=== PATIENT | female | born 1995 | race Two or more races ===

== ENCOUNTER 2019-01-12 00:27 | Emergency (ER) | payer BC ==
[~2019-01-12] VITALS: Ht 172.7 cm; Wt 54.9 kg
--- NOTE | 2019-01-12 00:35 | NUR ---
PT BRENDON C/O INTERMITTENT R SIDE ABDOMINAL PAIN. PT STATES SHE WAS SEEN BY MD AND RECENTLY DX WITH ULCER, HAS BEEN TAKING PROTONIX AND CARAFATE AT HOME, MINIMAL RELIEF. DENIES DYSURIA, VOMITTING, DIARRHEA. PT AAOX4. APPEARS UNCOMFORTABLE. VITAL SIGNS STABLE. ABLE TO AMBULATE WITH STEADY GAIT. SKIN INTACT. NO ACUTE DISTRESS NOTED AT THIS TIME. PLACED IN GOWN AND ON MONITOR, WILL CONTINUE TO MONITOR
[2019-01-12] MEDS ORDERED: MAG HYDROX/AL HYDROX/SIMETH 30 ML UDC ONE (00:38)
[2019-01-12] MEDS ORDERED: ONDANSETRON HCL/PF 4 MG/2 ML VIAL ONE (00:38)
[2019-01-12] MEDS ORDERED: LIDOCAINE VISCOUS 2% UD 15 ML UDC ONE (00:38)
--- NOTE | 2019-01-12 00:43 | NUR ---
IV INITIATED LAC 20G. LABS DRAWN FROM SITE. NATIONAL SALES ASSOCIATE AT BEDSIDE FOR COLLECTION. IV INTACT AND PATENT, PLACED ON SALINE LOCK
[2019-01-12] MEDS ORDERED: SUCRALFATE 1 G/10 ML UDC ONE ×2 (00:57→00:59)
[2019-01-12] MEDS ORDERED: PANTOPRAZOLE 40 MG VIAL ONE (00:57)
[2019-01-12] MEDS ORDERED: PANTOPRAZOLE 40 MG VIAL IV ONE (01:00)
[2019-01-12] MEDS ORDERED: SUCRALFATE 1 G/10 ML UDC PO ONE (01:00)
[2019-01-12] MEDS ORDERED: IV NS 0.9% 1,000 ML BAG IV ONE (01:00)
[2019-01-12] MEDS ORDERED: ONDANSETRON HCL/PF 4 MG/2 ML VIAL IVP ONE (01:00)
[2019-01-12] MEDS ORDERED: MAG HYDROX/AL HYDROX/SIMETH 30 ML UDC PO ONE (01:00)
--- NOTE | 2019-01-12 01:00 | NUR ---
CARAFATE SUP ACCIDENTALLY SPILLED, PULLED ADDITIONAL MEDICATION TO ADMINISTER
[2019-01-12 01:05] LABS: BASOPHILS # (AUTO) 0.1 /CMM (0.0-0.2); EOSINOPHILS % (AUTO) 1.3 % (0.0-6.0); HEMATOCRIT 43 % (33-45); HEMOGLOBIN 14.1 g/dL (11.5-14.8); LYMPHOCYTES # (AUTO) 2.4 /CMM (0.8-4.8); LYMPHOCYTES % (AUTO) 36.3 % (20.0-44.0); MEAN CORPUSCULAR HGB CONC 33 g/dl (31.0-36.0); MEAN CORPUSCULAR VOLUME 82 fL (82-100); MONOCYTES # (AUTO) 0.4 /CMM (0.1-1.30); MONOCYTES % (AUTO) 6.1 % (2.0-12.0); NEUTROPHILS # (AUTO) 3.6 /CMM (1.8-8.9); NEUTROPHILS % (AUTO) 55.3 % (43.0-81.0); PLATELET COUNT (AUTO) 230 /CMM (150-450); RED BLOOD CELL COUNT(AUTO) 5.21 MIL/uL (4.0-5.2); WHITE BLOOD COUNT (AUTO) 6.5 K/uL (4.3-11.0)
[2019-01-12 01:06] LABS: CALCIUM, SERUM 8.7 mg/dL (8.5-10.1); CREATININE 0.7 mg/dL (0.6-1.3); POTASSIUM 3.6 mmol/L (3.5-5.1)
[2019-01-12 01:12] LABS: ALBUMIN 4.4 g/dL (3.4-5.0); BILIRUBIN,DIRECT 0.1 mg/dL (0.0-0.2); BILIRUBIN,TOTAL 0.5 mg/dL (0.2-1.0); TOTAL PROTEIN, SERUM 7.4 g/dL (6.4-8.2)
--- NOTE | 2019-01-12 01:13 | NUR ---
RADIOLOGY AT BEDSIDE FOR CXR
--- NOTE | 2019-01-12 01:16 | NUR ---
US AT BEDSIDE
[2019-01-12] MEDS ORDERED: MORPHINE SULFATE INJ 2 MG/ML DISP.SYRIN ONE (01:49)
--- NOTE | 2019-01-12 01:50 | NUR ---
PT STILL C/O ABDOMINAL PAIN AND BURNING. ER AWARE
[2019-01-12] MEDS ORDERED: MORPHINE SULFATE INJ 2 MG/ML DISP.SYRIN IV ONE ×2 (02:00→03:00)
--- NOTE | 2019-01-12 02:34 | NUR ---
CERTIFICATION ENGINEER AT BEDSIDE FOR REDRAW
[2019-01-12] MEDS ORDERED: MORPHINE SULFATE INJ 4 MG/ML DISP.SYRIN ONE (03:01)
[2019-01-12 03:17] LABS: CALCIUM, SERUM 7.7 mg/dL (8.5-10.1); CREATININE 0.6 mg/dL (0.6-1.3); POTASSIUM 3.9 mmol/L (3.5-5.1)
--- NOTE | 2019-01-12 03:52 | NUR ---
Patient discharged to home in stable condition. Written and verbal after care instructions given. Patient verbalizes understanding of instruction.IV removed. Catheter intact and site benign. Pressure and 4x4 applied to site. No bleeding noted.Pt ambulatory with a steady gait
[2019-01-12 03:53] VITALS: BP 123/79
== END 2019-01-12 03:53 | disposition home or self-care (01) ==
LOC: ER 00:29
DX: R10.11 Right upper quadrant pain (principal); R11.2 Nausea with vomiting, unspecified
CPT/HCPCS: 36415; 71045; 76705; 80048 ×2; 80076; 83690; 84703; 85025; 96361; 96374; 96375; 96376; 99284; C9113; J2270 ×2; J2405; J7030

== ENCOUNTER 2019-08-08 08:04 | Inpatient (IN) | payer BC ==
[2019-08-04 15:48] LABS: APPEARANCE,URINE CLEAR (CLEAR); BASOPHILS # (AUTO) 0.1 /CMM (0.0-0.2); BASOPHILS % (AUTO) 2.4 % (0.0-2.0); BILIRUBIN,URINE NEGATIVE (NEGATIVE); BLOOD, URINE TRACE Ery/uL (NEGATIVE); COLOR,URINE YELLOW (YELLOW); HEMATOCRIT 44 % (33-45); HEMOGLOBIN 14.7 g/dL (11.5-14.8); KETONES,URINE NEGATIVE (NEGATIVE); LEUKOCYTE ESTERASE ,URINE NEGATIVE (NEGATIVE); LYMPHOCYTES # (AUTO) 1.3 /CMM (0.8-4.8); LYMPHOCYTES % (AUTO) 25.3 % (20.0-44.0); MEAN CORPUSCULAR HGB CONC 33 g/dl (31.0-36.0); MEAN CORPUSCULAR VOLUME 87 fL (82-100); MONOCYTES # (AUTO) 0.4 /CMM (0.1-1.30); MONOCYTES % (AUTO) 7.3 % (2.0-12.0); NEUTROPHILS # (AUTO) 3.4 /CMM (1.8-8.9); NITRITE, URINE NEGATIVE (NEGATIVE); PH,URINE 7.5 (5.0-8.0); PLATELET COUNT (AUTO) 222 /CMM (150-450); PROTEIN,URINE NEGATIVE (NEGATIVE); UGLUCOSE NEGATIVE (NEGATIVE); UROBILINOGEN,URINE 0.2 EU/dL (0.2); WHITE BLOOD COUNT (AUTO) 5.3 K/uL (4.3-11.0)
[2019-08-04 15:57] LABS: ALBUMIN 4.2 g/dL (3.4-5.0); BILIRUBIN,TOTAL 1.1 mg/dL (0.2-1.0); CALCIUM, SERUM 8.8 mg/dL (8.5-10.1); CREATININE 0.7 mg/dL (0.6-1.3); TOTAL PROTEIN, SERUM 7.1 g/dL (6.4-8.2)
[2019-08-04 16:00] LABS: BACTERIA,URINE 2+ /HPF (None Seen); WBC,URINE 0-2 /HPF (0-3)
[2019-08-04 16:50] LABS: BILIRUBIN,DIRECT 0.2 mg/dL (0.0-0.2); BILIRUBIN,TOTAL 1.1 mg/dL (0.2-1.0)
[~2019-08-08] VITALS: Ht 167.6 cm; Wt 56.7 kg
[~2019-08-08 08:04] MED LIST: ANESTHESIA TRAY IN PYXIS 1 EA TRAY MC ONE; BUPIVACAINE MPF W/EPI 0.25% 30 ML VIAL ONE; LIDOCAINE HCL/MPF 1% 30 ML VIAL IJ ONE
[2019-08-08] MEDS ORDERED: SCOPOLAMINE HBR 1 EA PATCH.TD72 TD ONE (08:44)
[2019-08-08] MEDS ORDERED: MIDAZOLAM HCL 2 MG/2ML VIAL ONE (08:44)
[2019-08-08] MEDS ORDERED: FENTANYL PF 100MCG/2ML AMPUL ONE ×3 (08:44→10:09)
[2019-08-08] MEDS ORDERED: ONDANSETRON HCL/PF 4 MG/2 ML VIAL ONE (09:57)
[2019-08-08 11:00] VITALS: BP 110/79
--- NOTE | 2019-08-08 11:00 | NUR ---
MS RN DIRECT ADMIT NOTES ADMITTED PT FROM [facility]. PT ALERT, AWAKE AND ORIENTED X4. VERBALLY RESPONSIVE .ON ROOM AIR WITH NO SOB NOTED. WITH ONGOING IVF OF LR I LITER TO CONSUME IN HER LT WRIST INFUSING WELL .ORIENTATION GIVEN TO HER NEW ROOM AND USE OF CALL LIGHT.PT IS PLEASANT AND COOPERATIVE WITH STAFF. S/P LAP DEREK DONE BY DR MANZO.SURGICAL DRESSINGS IN ABD AREA CLEAN AND DRY. NO BLEEDING NOTED. WILL CONTINUE TO MONITOR. CALL LIGHT PLACED WITHIN REACH.
[2019-08-08] MEDS ORDERED: MORPHINE SULFATE INJ 2 MG/ML DISP.SYRIN IV PRN ×2 (11:30→13:00)
--- NOTE | 2019-08-08 12:37 | NUR ---
PT C/O SEVERE PAIN ON THE SURGICAL SITE.MSO4 4 MG IV GIVEN FOR PAIN MGT. NOTIFIED DR GONZALEZ AND QUINTON NEGRETE [employer] NURSE PSYCHOTHERAPIST MADE AWARE
--- NOTE | 2019-08-08 12:49 | NUR ---
PT IS STILL IN TOO MUCH PAIN S/P LAP DEREK INSPITE OF GIVING HER MORPHINE SULFATE 4 MG IV AND HOUR AGO. DR GONZALEZ MADE AWARE AND GAVE ORDERS TO INCREASE MORPHINE DOSE TO 6 MG IV Q 2 HRS PRN.
[2019-08-08] MEDS ORDERED: HYDROCODONE/APAP 5/325MG 1 EACH TABLET PO PRN (13:00)
[2019-08-08] MEDS ORDERED: ONDANSETRON HCL/PF 4 MG/2 ML VIAL IVP PRN (13:00)
[2019-08-08] MEDS ORDERED: MORPHINE SULFATE INJ 4 MG/ML DISP.SYRIN IV ONE (13:00)
[2019-08-08] MEDS ORDERED: MORPHINE SULFATE INJ 4 MG/ML DISP.SYRIN IV PRN (13:00)
[2019-08-08] MEDS: ONDANSETRON HCL/PF 4 MG/2 ML VIAL IVP PRN ×2 (14:10→20:09)
--- NOTE | 2019-08-08 14:10 | NUR ---
PT C/O NAUSEOUS- ADMINISTERED ZOFRAN 4MG IV PRN.EXPLAINED THE SIDE EFFECTS OF PAIN MEDS TO THE PT.
[2019-08-08] MEDS: IV D5/0.45 NACL W/20 MEQ KCL 1L IV PRN ×2 (14:12)
[2019-08-08] MEDS: MORPHINE SULFATE INJ 4 MG/ML DISP.SYRIN IV PRN ×3 (14:48→21:24)
--- NOTE | 2019-08-08 14:48 | NUR ---
NOTIFIED DR GONZALEZ OF PT STILL C/O SEVERE PAIN INSPITE OF GIVING MORPHINE SULFATE 4 MG IV AT 1237 WITH ORDERS TO ADMINISTER MSO4 6 MG IV Q 3HRS PRN AND VCARRIED OUT.
--- NOTE | 2019-08-08 15:00 | NUR ---
PT STILL C/O ABDOMINAL SURGICAL SITE PAIN .NOTIFIED DR GONZALEZ AND QUINTON NEGRETE NP WITH ORDER OF TORADOL IV PRN AND CARRIED OUT.
[2019-08-08 16:00] VITALS: BP 117/65
[2019-08-08] MEDS: KETOROLAC TROMETHAMINE INJ 30 MG/ML VIAL IV PRN (16:32)
--- NOTE | 2019-08-08 18:29 | NUR ---
ELONIA ALCANTARA ORDERED NOT TO GIVE DILAUDID IN CASE THEY WILL CALL THE [facility] NURSE BECAUSE PT WILL HAVE SENSITIVITY ON THE DILAUDID HAVING ALTERED MENTAL STATUS.
--- NOTE | 2019-08-08 18:57 | NUR ---
ADMINISTERED MSO4 6 MG IV FOR S/P LAP DEREK PAIN MGT.PT FROWNING AND IS C/O SEVERE SURGICAL SITE PAIN. WILL MONITOR.
[2019-08-08 20:00] VITALS: BP 108/59
--- NOTE | 2019-08-08 20:10 | NUR ---
prn zofran: pt c/o being nauseated, requesting for zofran, prn zofran iv administered at this time.
[2019-08-08 21:22] VITALS: BP 113/84
--- NOTE | 2019-08-08 21:24 | NUR ---
prn morphine: pt called requesting for pain medication, ps 7/10 on right lower abdomen and right upper back and shoulder, prn morphine 6nmg ivp administered to pt at this time, vs taken and recorded prior to administering medication, dr mayers at bed side.
[2019-08-09 00:02] VITALS: BP 109/66
[2019-08-09 00:10] VITALS: BP 109/66
[2019-08-09] MEDS: IV D5/0.45 NACL W/20 MEQ KCL 1L IV PRN ×2 (00:10)
[2019-08-09] MEDS: MORPHINE SULFATE INJ 4 MG/ML DISP.SYRIN IV PRN ×5 (00:25→13:38)
--- NOTE | 2019-08-09 00:25 | NUR ---
PRN MORPHINE: WENT TO CHECK ON THE PT, REASSESS HER PAIN LEVEL, PT C/O RIGHT UPPER BACK AND RIGHT SHOULDER PAIN REQUESTING FOR HER MORPHINE, VS TAKEN AND RECORDED PRIOR TO GIVING MEDICINE, WARM COMPRESS PROVIDED AND PLACED ON PT'S RIGHT SHOULDER, NECK AND BACK AREA, RIGHT AC IV ACCESS PATENT AND FLUSHING WELL, WITH GOOD BLOOD RETURN NOTED, PRN MORPHINE 6MG IVP ADMINISTERED TO PT AT THIS TIME. WILL CONTINUE TO MONITOR AND REASSESS PT.
[2019-08-09] MEDS: KETOROLAC TROMETHAMINE INJ 30 MG/ML VIAL IV PRN (02:11)
--- NOTE | 2019-08-09 02:11 | NUR ---
PRN TORADOL: PT C/O ABDOMINAL PAIN RUQ, RLQ, AND RIGHT SHOULDER PAIN, REQUESTING FOR TORADOL, PRN TORADOL 15MG IVP ADMINISTERED TO PT AT THIS TIME, WILL CONTINUE TO MONITOR AND REASSESS PT.
[2019-08-09 03:12] VITALS: BP 108/70
--- NOTE | 2019-08-09 03:26 | NUR ---
PRN MORPHINE: PT CALLED REQUESTING FOR HER MORPHINE, PS 08/27, RECEIVED TORADOL AN HOUR AGO, VS TAKEN AND RECORDED PRIOR TO ADMINISTERING MEDS, IV ACCESS PATENT AND FLUSHING WELL, WITH GOOD BLOOD RETURN NOTED, PRN MORPHINE 6MG IVP ADMINISTERED TO PT AT THIS TIME. WILL CONTINUE TO MONITOR AND REASSESS PT.
[2019-08-09 04:00] VITALS: BP 108/70
[2019-08-09 06:30] VITALS: BP 101/63
--- NOTE | 2019-08-09 06:33 | NUR ---
PRN MORPHINE: PT /O 12/27 RUQ RLQ RIGHT SHOULDER PAIN, REQUESTING FOR MORPHINE, IV ACCESS CHECK, PATENT AND FLUSHING WELL, WITH GOOD BLOOD RETURN NOTED, VS TAKEN AND RECORDED, PRN MORPHINE 6MG IVP ADMINISTERED TO PT AT THIS TIME, WILL CONTINUE TO MONITOR AND REASSESS PT.
--- NOTE | 2019-08-09 07:04 | NUR ---
END OF SHIFT REPORT: PT WAS RECEIVED FROM [facility] AT 1905. PT S/P LAP DEREK BY DR MANZO. PT ON SOFT DIET, BUT ACCDG TO HER SHE ONLY TOLERATES CLEAR LIQUID SUCH BROTH AND JELL O. IV ACCESS NEWLY INSERTED BY DR GONZALEZ LAST NIGHT, G 22, INFUSING QWITH D5 1/2 NS WITH 20 MEQ KCL AT 75ML/HR. PT IS A/O X4, ON RA, SPO2 RANGING 95-98%, SCD IN USE, PT ABLE TO AMBULATE TO THE RESTROOM, VOIDED FREELY, DENIES ANY PROBLEM WITH URINATION. PRN ZOFRAN ADMINISTERED FOR C/O NAUSEA AT 2008, PRN TORADOL ADMINISTERED IVP AT 0210AM FOR C/O RLQ, RUQ ABDL PAIN. A TOTAL OF 24MG OF IV MORPHINE ADMINISTERED (4X) (2130, 0030, 0330, 0630) THROUGHOUT THE SHIFT FOR C/O RIGHT SHOULDER AND RIGHT UPPER BACK PAIN. VS TAKEN AND RECORDED PRIOR TO ADMINISTERING THOSE PRN MEDICATION. OFFERED TO CHANGE LINENS/BEDDING AND AM CARE TO PT, HOWEVER SHE REFUSED, STATED SHE WILL DO IT AT 11AM, PT WILL BE DC TODAY IN AM. IV ACCESS REMAINS PATENT AND FLUSHING WELL, NO S/S OF IV INFILTRATION NOTED. ALL NEEDS ATTENDED. SAFETY PRECAUTIONS FOR FALL REMAINS ENGAGED, CALL LIGHT IN REACH, WILL ENDORSE TO DAY RN FOR CONTINUITY OF CARE.
[2019-08-09 07:27] LABS: BASOPHILS % (AUTO) 0.6 % (0.0-2.0); EOSINOPHILS % (AUTO) 0.3 % (0.0-6.0); HEMATOCRIT 37 % (33-45); HEMOGLOBIN 12.4 g/dL (11.5-14.8); LYMPHOCYTES # (AUTO) 1.8 /CMM (0.8-4.8); LYMPHOCYTES % (AUTO) 31.4 % (20.0-44.0); MEAN CORPUSCULAR HGB CONC 33 g/dl (31.0-36.0); MEAN CORPUSCULAR VOLUME 87 fL (82-100); MONOCYTES # (AUTO) 0.5 /CMM (0.1-1.30); MONOCYTES % (AUTO) 8.2 % (2.0-12.0); NEUTROPHILS # (AUTO) 3.4 /CMM (1.8-8.9); NEUTROPHILS % (AUTO) 59.5 % (43.0-81.0); PLATELET COUNT (AUTO) 157 /CMM (150-450); RED BLOOD CELL COUNT(AUTO) 4.27 MIL/uL (4.0-5.2); WHITE BLOOD COUNT (AUTO) 5.7 K/uL (4.3-11.0)
[2019-08-09 07:42] LABS: ALBUMIN 3.3 g/dL (3.4-5.0); BILIRUBIN,TOTAL 1.5 mg/dL (0.2-1.0); CALCIUM, SERUM 8.1 mg/dL (8.5-10.1); CREATININE 0.7 mg/dL (0.6-1.3); POTASSIUM 3.2 mmol/L (3.5-5.1); TOTAL PROTEIN, SERUM 5.9 g/dL (6.4-8.2)
[2019-08-09 08:00] VITALS: BP 88/54
[2019-08-09] MEDS: ONDANSETRON HCL/PF 4 MG/2 ML VIAL IVP PRN (08:13)
[2019-08-09] MEDS ORDERED: POLYETHYLENE GLYCOL 3350 17 GM POWD.PACK PO ONE (11:00)
[2019-08-09 12:10] LABS: BILIRUBIN,DIRECT 0.3 mg/dL (0.0-0.2); BILIRUBIN,TOTAL 1.5 mg/dL (0.2-1.0)
[2019-08-09] MEDS ORDERED: IBUP-1953 PO (13:22)
[2019-08-09] MEDS ORDERED: ONDA4TAB11 PO (13:22)
[2019-08-09] MEDS ORDERED: HYDR-4354 PO (13:22)
--- NOTE | 2019-08-09 14:30 | NUR ---
MS CODING AUDITOR NOTE PT DISCHARGED TO HOME IN MEDICALLY STABLE CONDITION WITH FATHER JACKELIN GONZALEZ. PT IS A/OX4, AFEBRILE. RESPIRATIONS ARE EVEN AND UNLABORED, NOT IN ANY ACUTE DISTRESS NOTED. PT DENIES SOB, N/V. ABDOMEN IS SOFT AND NONDISTENDED, BOWEL SOUNDS ARE HYPOACTIVE. +FLATUS, NO BM DURING SHIFT. ABLE TO VOID. PT IS CONTINENT WITH BOWEL AND BLADDER. SURGICAL INCISIONS NOTED TO ABDOMEN, COVERED WITH MEPILEX BORDERED DRESSING. PT DID NOT WANT TO CHANGE DRESSING AND REFUSED PICTURES. SKIN CDI. PIV REMOVED, APPLIED PRESSURE AND TOLERATED WELL. ID BAND REMOVED. EXPLAINED DISCHARGE PAPERWORK TO PT WITH VERBAL AND WRITTEN UNDERSTANDING. PER PT, HER FATHER HAS HER PRESCRIPTION. ALL BELONGINGS SENT WITH PT. PT LEFT IN MEDICALLY STABLE CONDITION.
== END 2019-08-09 14:30 | disposition home or self-care (01) | DRG 419 ==
LOC: DS 08:04 → MED 11:17
PROVIDERS: ADMIT Nurse Practitioner Acute Care; ATTEND Nurse Practitioner Acute Care
PROC: 0FT44ZZ Resection of Gallbladder, Percutaneous Endoscopic Approach (ICD-10-PCS; principal; 2019-08-08)
DX: K82.8 Other specified diseases of gallbladder (principal); K80.50 Calculus of bile duct without cholangitis or cholecystitis without obstruction; K29.70 Gastritis, unspecified, without bleeding; E80.6 Other disorders of bilirubin metabolism; K66.0 Peritoneal adhesions (postprocedural) (postinfection)
CPT/HCPCS: 36415; 80053-TC; 81000-TC; 82247-TC; 82248-TC; 84703-TC; 85025-TC; 85610-TC; 85730-TC; 87081-TC; 87086-TC; 88304-TC; G0378; J0690; J1100; J1885; J2250; J2270; J2405; J2704; J2710; J3010; J3480; J3490; U0003

== ENCOUNTER 2019-10-16 13:27 | Outpatient (CLI) | payer BC ==
[~2019-10-16 13:27] MED LIST changes: -ANESTHESIA TRAY IN PYXIS 1 EA TRAY MC ONE; -BUPIVACAINE MPF W/EPI 0.25% 30 ML VIAL ONE; +HYDR-4354 PO; +IBUP-1953 PO; -LIDOCAINE HCL/MPF 1% 30 ML VIAL IJ ONE; +ONDA4TAB11 PO
[2019-10-16] MEDS ORDERED: LORAZEPAM 1 MG TABLET PO ONE (14:00)
== END 2019-10-16 23:59 | disposition home or self-care (01) ==
LOC: MRI 13:27
PROVIDERS: ATTEND Nurse Practitioner Acute Care
DX: R53.1 Weakness (principal); N83.8 Other noninflammatory disorders of ovary, fallopian tube and broad ligament
CPT/HCPCS: 72148-TC